=== PATIENT | male | born 1985 | race Two or more races ===

== ENCOUNTER 2022-01-18 11:20 | Emergency (ER) | payer OTHER ==
[~2022-01-18] VITALS: Ht 172.7 cm; Wt 79.8 kg
[2022-01-18 11:20] VITALS: BP 123/54
--- NOTE | 2022-01-18 12:24 | NUR ---
Patient discharged to home in stable condition. Written and verbal after care instructions given. Patient verbalizes understanding of instruction.
== END 2022-01-18 12:25 | disposition home or self-care (01) ==
LOC: ER 11:28
DX: S42.91XA Fracture of right shoulder girdle, part unspecified, initial encounter for closed fracture (principal); J45.909 Unspecified asthma, uncomplicated; X58.XXXA Exposure to other specified factors, initial encounter; Y93.89 Activity, other specified; Y92.89 Other specified places as the place of occurrence of the external cause; Y99.8 Other external cause status
CPT/HCPCS: 73030-TC